=== PATIENT | male | born 1975 | race Hispanic/Latino ===

== ENCOUNTER 2018-11-17 09:00 | Inpatient (IN) | payer OTHER | END 2018-11-24 14:40 | disposition home or self-care (01) | LOC: 2DH 11-19 16:15 → DAHIP 09:00 → 2DH 20:50 | PROC: 0BT Respiratory System, Resection (ICD-10-PCS; principal; 2018-11-17 16:22) | PROC: 0B9 Respiratory System, Drainage (ICD-10-PCS; 2018-11-17 16:22) | PROC: 0BBH0ZZ Excision of Lung Lingula, Open Approach (ICD-10-PCS; 2018-11-17 16:22) | DX: C34.12 Malignant neoplasm of upper lobe, left bronchus or lung (principal); J93.82 Other air leak; R91.1 Solitary pulmonary nodule ==